=== PATIENT | male | born 2000 | race Caucasian/White ===

== ENCOUNTER 2023-11-01 03:22 | Emergency (ER) | payer BC ==
[~2023-11-01] VITALS: Ht 195.6 cm; Wt 122.5 kg
[2023-11-01 03:31] VITALS: BP_SYST 116; PULSE 84; RESP 18; TEMP 98.3; O2SAT 96
[2023-11-01] MEDS ORDERED: IBUP-1969 PO (04:23)
[2023-11-01 04:44] VITALS: BP_SYST 104; PULSE 81; RESP 18; TEMP 98.3; O2SAT 98
== END 2023-11-01 04:39 | disposition home or self-care (01) ==
LOC: SED 03:22
DX: S52.124A Nondisplaced fracture of head of right radius, initial encounter for closed fracture (principal); Z88.2 Allergy status to sulfonamides; W18.39XA Other fall on same level, initial encounter; Y93.89 Activity, other specified; Y92.89 Other specified places as the place of occurrence of the external cause; Y99.8 Other external cause status
CPT/HCPCS: 99283

== ENCOUNTER 2023-11-13 12:31 | Day surgery (SDC) | payer BC ==
[2023-11-12 14:01] LABS: BASOPHILS % (AUTO) 0.3 % (0.0-2.0); EOSINOPHILS # (AUTO) 0.1 K/uL (0.0-0.4); EOSINOPHILS % (AUTO) 1.2 % (0.0-4.0); HEMOGLOBIN 14.8 g/dL (14.0-18.0); LYMPHOCYTES # (AUTO) 1.9 K/uL (1.0-5.5); LYMPHOCYTES % (AUTO) 24.2 % (20.5-51.5); MEAN CORPUSCULAR HEMOGLOBIN 31 pg (27-31); MEAN CORPUSCULAR HGB CONC 35 % (32-36); MEAN CORPUSCULAR VOLUME 89 fL (79.0-98.0); MONOCYTES # (AUTO) 0.8 K/uL (0.0-1.0); MONOCYTES % (AUTO) 9.9 % (1.7-9.3); NEUTROPHILS % (AUTO) 64.4 % (40.0-70.0); PLATELET COUNT (AUTO) 317 K/uL (130-430); RED BLOOD CELL COUNT(AUTO) 4.73 MIL/uL (4.2-6.2); RED CELL DISTRIBUTION WIDTH 13.4 % (9.0-15.0); WHITE BLOOD COUNT (AUTO) 7.7 K/uL (4.8-10.8)
[2023-11-12 14:25] LABS: BILIRUBIN,URINE NEGATIVE (NEGATIVE); BLOOD, URINE NEGATIVE (NEGATIVE); CLARITY/URINE CLEAR (CLEAR); COLOR,URINE YELLOW (YELLOW); GLUCOSE,URINE NEGATIVE (NEGATIVE); KETONES,URINE NEGATIVE (NEGATIVE); LEUKOCYTE ESTERASE ,URINE NEGATIVE (NEGATIVE); NITRITE, URINE NEGATIVE (NEGATIVE); PROTEIN URINE NEGATIVE (NEGATIVE); UROBILINOGEN,URINE 0.2 (0.2-1.0)
[~2023-11-13] VITALS: Ht 198.1 cm; Wt 122.5 kg
[~2023-11-13 12:31] MED LIST: IBUP-1969 PO
[2023-11-13] MEDS ORDERED: MIDAZOLAM HCL 5 MG/5 ML VIAL ONE (14:21)
[2023-11-13] MEDS: MIDAZOLAM HCL 5 MG/5 ML VIAL IVP ONE (14:25)
[2023-11-13 14:45] VITALS: O2SAT 99
[2023-11-13] MEDS ORDERED: ACETAMINOPHEN I.V. 1000 MG 100 ML IV ONE (15:30)
[2023-11-13] MEDS ORDERED: METOCLOPRAMIDE HCL 10 MG/2 ML VIAL IVP PRN (15:30)
[2023-11-13] MEDS ORDERED: MIDAZOLAM HCL 5 MG/5 ML VIAL IVP PRN (15:30)
[2023-11-13] MEDS ORDERED: ONDANSETRON HCL 4 MG/2 ML VIAL IVP PRN (15:30)
[2023-11-13] MEDS ORDERED: IBUPROFEN 800 MG TABLET PO PRN (15:30)
[2023-11-13] MEDS ORDERED: DEXAMETHASONE SOD PHOSPHATE 4 MG/ML VIAL ONE (17:20)
[2023-11-13] MEDS ORDERED: HYDROmorphone 1 MG/ML INJ. CARTRIDGE ONE ×2 (17:54→18:18)
[2023-11-13] MEDS: HYDROmorphone 1 MG/ML INJ. CARTRIDGE IVP PRN (17:58)
[2023-11-13 20:07] VITALS: BP_SYST 135; PULSE 90; RESP 17
== END 2023-11-13 20:00 | disposition home or self-care (01) ==
LOC: SDS 12:31 → SMU 12:32 → SDS 20:00
PROVIDERS: ATTEND Orthopaedic Surgery Sports Medicine
DX: S52.041A Displaced fracture of coronoid process of right ulna, initial encounter for closed fracture (principal); M25.321 Other instability, right elbow; I10 Essential (primary) hypertension; G47.33 Obstructive sleep apnea (adult) (pediatric); F98.8 Other specified behavioral and emotional disorders with onset usually occurring in childhood and adolescence; F90.9 Attention-deficit hyperactivity disorder, unspecified type; F17.210 Nicotine dependence, cigarettes, uncomplicated; W19.XXXA Unspecified fall, initial encounter; Y93.02 Activity, running; Y92.89 Other specified places as the place of occurrence of the external cause; Y99.8 Other external cause status
CPT/HCPCS: 81003; 81001; 85025; 87081; 36415; 24685; J3490; J1100; J1885; J2250 ×2; J2405; J2704; J3010; J1170; J7120; C1769; C1713 ×2; 76000